=== PATIENT | female | born 1965 | race Caucasian/White ===

== ENCOUNTER 2020-02-26 15:45 | Emergency (ER) | payer OTHER, MEDICAID ==
[~2020-02-26] VITALS: Ht 152.4 cm; Wt 69.4 kg
[2020-02-26 15:53] VITALS: Ht 152.4 cm; Wt 69.4 kg
[2020-02-26 18:14] VITALS: BP 146/63
== END 2020-02-26 18:14 | disposition home or self-care (01) ==
LOC: ED 15:45
DX: G51.0 Bell's palsy (principal)